=== PATIENT | female | born 1940 | race Hispanic/Latino ===

== ENCOUNTER → 2023-05-03 12:40 | Outpatient (REF) | payer MEDICARE, OTHER, SELFPAY | LOC: WDC 12:40 | PROVIDERS: ATTENDING PHYSICIAN Internal Medicine | DX: R92.2 Inconclusive mammogram (principal) | CPT/HCPCS: 76641 ==

== ENCOUNTER → 2023-08-12 10:27 | Outpatient (REF) | payer MEDICARE, OTHER, SELFPAY ==
[2023-08-12 11:48] LABS: ALT (SGPT) 30 U/L (0-35); AST (SGOT) 33 U/L (14-36); Albumin 4.5 g/dl (3.5-5.0); Alkaline Phosphatase 92 U/L (38-126); Direct Bilirubin 0.3 mg/dl (0.0-0.4); Total Bilirubin 2.1 mg/dl (0.2-1.3); Total Protein 7.5 g/dl (6.3-8.2)
== END ==
LOC: REG 10:27
PROVIDERS: ATTENDING PHYSICIAN Specialist; FAMILY PHYSICIAN Internal Medicine
DX: R79.89 Other specified abnormal findings of blood chemistry (principal)
CPT/HCPCS: 36415; 80076

== ENCOUNTER → 2023-08-26 09:00 | Outpatient (REF) | payer MEDICARE, OTHER, SELFPAY ==
[2023-08-26 12:55] LABS: % Basophils 0.8 % (0-2); % Immature Granulocytes 0.4 % (0-0.5); % Lymphocytes 39.6 % (20.5-51.1); % Neutrophils 49.2 % (42.2-75.2); Absolute Eosinophils 0.2 10^3/uL (0-0.7); Absolute Lymphocytes 1.9 10^3/uL (1.2-3.4); Absolute Monocytes 0.3 10^3/uL (0.1-0.6); Absolute Neutrophils 2.4 10^3/uL (1.4-6.5); Hematocrit 31.4 % (37.0-47.0); Mean Corpuscular Hgb 30.8 pg (27.0-31.0); Mean Platelet Volume 9.6 fL (7.4-10.4); Nucleated Red Blood Cells % 0 %; Platelet Count 384 10^3/uL (130-400); Red Blood Cell Count 3.57 10^6/uL (4.20-5.40); Red Cell Dist. Width 17.7 % (11.5-14.5); White Blood Cell Count 4.8 10^3/uL (4.8-10.8)
[2023-08-26 13:34] LABS: ALT (SGPT) 21 U/L (0-35); AST (SGOT) 31 U/L (14-36); Albumin 4.1 g/dl (3.5-5.0); Alkaline Phosphatase 75 U/L (38-126); Blood Urea Nitrogen 20 mg/dl (7-17); Calcium 9.3 mg/dl (8.4-10.2); Carbon Dioxide 26 mmol/L (22-30); Chloride 107 mmol/L (98-107); Glucose 96 mg/dl (70-99); HDL Cholesterol 63 mg/dl; LDL Cholesterol, Calculated 57 mg/dl; Potassium 4.8 mmol/L (3.5-5.1); Sodium 139 mmol/L (135-145); Total Cholesterol 147 mg/dl (50-199); Triglyceride 136 mg/dl (10-149); Very Low Density Lipoprotein 27 mg/dl (0-30); eGFR > 60.00
[2023-08-26 13:49] LABS: Vitamin D, 25-OH*** 74.7 ng/mL (30-80)
[2023-08-26 14:02] LABS: TSH Reflex To Free T4 3.91 uIU/ml (0.47-4.68)
== END ==
LOC: HWLAB 09:00
PROVIDERS: ATTENDING PHYSICIAN Internal Medicine
DX: Z00.00 Encounter for general adult medical examination without abnormal findings (principal); R94.6 Abnormal results of thyroid function studies; R79.89 Other specified abnormal findings of blood chemistry; K21.9 Gastro-esophageal reflux disease without esophagitis; R00.2 Palpitations; E66.3 Overweight
CPT/HCPCS: 36415; 80053; 80061; 82306; 83036; 84443; 85025

== ENCOUNTER → 2023-09-06 11:04 | Outpatient (REF) | payer MEDICARE, OTHER, SELFPAY | LOC: HWRCS 11:04 | PROVIDERS: ATTENDING PHYSICIAN Internal Medicine | DX: R00.2 Palpitations (principal); R07.9 Chest pain, unspecified; R94.31 Abnormal electrocardiogram [ECG] [EKG] | CPT/HCPCS: 93306 ==

== ENCOUNTER → 2023-09-08 11:05 | Outpatient (REF) | payer MEDICARE, OTHER, SELFPAY | LOC: HWRAD 11:05 | PROVIDERS: ATTENDING PHYSICIAN Internal Medicine | DX: R00.2 Palpitations (principal); R07.9 Chest pain, unspecified; R94.31 Abnormal electrocardiogram [ECG] [EKG] | CPT/HCPCS: 75571 ==

== ENCOUNTER → 2024-01-04 10:14 | Outpatient (REF) | payer MEDICARE, OTHER, SELFPAY | LOC: PAVMRI 10:14 | PROVIDERS: ATTENDING PHYSICIAN Orthopaedic Surgery; FAMILY PHYSICIAN Internal Medicine | DX: M25.562 Pain in left knee (principal) | CPT/HCPCS: 73721 ==

== ENCOUNTER → 2024-02-22 09:06 | Outpatient (REF) | payer MEDICARE, OTHER, SELFPAY ==
[2024-02-22 11:53] LABS: Blood Urea Nitrogen 20 mg/dl (7-17); Calcium 9.2 mg/dl (8.4-10.2); Carbon Dioxide 28 mmol/L (22-30); Chloride 104 mmol/L (98-107); Glucose 97 mg/dl (70-99); Potassium 4.3 mmol/L (3.5-5.1); Sodium 141 mmol/L (135-145); eGFR > 60.00
== END ==
LOC: HWLAB 09:06
PROVIDERS: ATTENDING PHYSICIAN Specialist; FAMILY PHYSICIAN Internal Medicine
DX: R10.32 Left lower quadrant pain (principal)
CPT/HCPCS: 36415; 80048

== ENCOUNTER → 2024-02-29 08:27 | Outpatient (REF) | payer MEDICARE, OTHER, SELFPAY | LOC: HWRAD 08:27 | PROVIDERS: ATTENDING PHYSICIAN Specialist; FAMILY PHYSICIAN Internal Medicine | DX: R10.32 Left lower quadrant pain (principal) | CPT/HCPCS: 74177; Q9967 ==

== ENCOUNTER → 2024-03-23 11:11 | Outpatient (REF) | payer MEDICARE, OTHER, SELFPAY | LOC: HWRAD 11:11 | PROVIDERS: ATTENDING PHYSICIAN Family Medicine | DX: J06.9 Acute upper respiratory infection, unspecified (principal) | CPT/HCPCS: 71046 ==

== ENCOUNTER → 2024-07-03 08:35 | Outpatient (REF) | payer MEDICARE, OTHER, SELFPAY | LOC: HWWDC 08:35 | PROVIDERS: ATTENDING PHYSICIAN Internal Medicine | DX: Z12.31 Encounter for screening mammogram for malignant neoplasm of breast (principal) | CPT/HCPCS: 77063; 77067 ==

== ENCOUNTER → 2024-09-06 09:29 | Outpatient (REF) | payer MEDICARE, OTHER, SELFPAY ==
[2024-09-06 12:04] LABS: % Basophils 0.9 % (0-2); % Immature Granulocytes 0.4 % (0-0.5); % Lymphocytes 31.4 % (20.5-51.1); % Monocytes 7.4 % (1.7-9.3); % Neutrophils 55.9 % (42.2-75.2); Absolute Basophils 0.1 10^3/uL (0-0.2); Absolute Eosinophils 0.2 10^3/uL (0-0.7); Absolute Lymphocytes 1.7 10^3/uL (1.2-3.4); Absolute Monocytes 0.4 10^3/uL (0.1-0.6); Absolute Neutrophils 3.1 10^3/uL (1.4-6.5); Hematocrit 30.6 % (37.0-47.0); Hemoglobin 11.1 g/dL (12.0-16.0); Mean Corp Hgb Conc. 36.3 g/dL (33.0-37.0); Mean Corpuscular Hgb 31.2 pg (27.0-31.0); Mean Platelet Volume 9.2 fL (7.4-10.4); Nucleated Red Blood Cells % 0 %; Platelet Count 363 10^3/uL (130-400); Red Blood Cell Count 3.56 10^6/uL (4.20-5.40); Red Cell Dist. Width 17.2 % (11.5-14.5); White Blood Cell Count 5.5 10^3/uL (4.8-10.8)
[2024-09-06 12:18] LABS: PT 14.7 Sec (11.4-14.6)
[2024-09-06 12:19] LABS: APTT 32.4 Sec (23.4-35.0); Fibrinogen 369 MG/DL (199-459)
[2024-09-06 12:22] LABS: D-Dimer 0.73 ug/mlFEU (0.00-0.50)
[2024-09-06 12:25] LABS: Erythrocyte Sed Rate 5 mm/hour (0-20)
[2024-09-06 12:42] LABS: ALT (SGPT) 23 U/L (0-35); AST (SGOT) 27 U/L (14-36); Albumin 4.2 g/dl (3.5-5.0); Alkaline Phosphatase 79 U/L (38-126); Blood Urea Nitrogen 28 mg/dl (7-17); Calcium 9.2 mg/dl (8.4-10.2); Carbon Dioxide 23 mmol/L (22-30); Chloride 109 mmol/L (98-107); Glucose 96 mg/dl (70-99); Iron 119 ug/dl (37-170); Potassium 4.7 mmol/L (3.5-5.1); Sodium 141 mmol/L (135-145); Total Bilirubin 1.8 mg/dl (0.2-1.3); Total Protein 7.2 g/dl (6.3-8.2); eGFR > 60.00
[2024-09-06 12:51] LABS: Percent Saturation 38 % (20-50); Total Iron Binding Capacity 307 ug/dl (265-497)
[2024-09-07 15:32] LABS: C-Reactive Protein < 5.00 mg/L (0.0-10.00)
[2024-09-07 16:59] LABS: Folate 18.3 ng/ml (2.76-20); Vitamin B12 671 pg/ml (239-931)
[2024-09-08 01:47] LABS: Phosphatidylserine Ab, IgA 0 APS (0-19); Phosphatidylserine Ab, IgG 0 GPS (0-15); Phosphatidylserine Ab, IgM 13 MPS (0-21)
[2024-09-08 15:41] LABS: Number Of Markers 32 markers; Source Blood
[2024-09-08 18:02] LABS: Beta-2-Glycoprotein I Ab. IgG <10 SGU (<=20); Beta-2-Glycoprotein I Ab. IgM 20 SMU (<=20)
[2024-09-09 17:37] LABS: Cardiolipin IgA Antibody <10 APL (<=11); Cardiolipin IgM Antibody <10 MPL (<=12); Cardiolipin Igg Antibody <10 GPL (<=14)
== END ==
LOC: HWLAB 09:29
PROVIDERS: ATTENDING PHYSICIAN Internal Medicine Hematology & Oncology; FAMILY PHYSICIAN Internal Medicine
DX: D47.3 Essential (hemorrhagic) thrombocythemia (principal); D53.9 Nutritional anemia, unspecified; D68.61 Antiphospholipid syndrome; I82.90 Acute embolism and thrombosis of unspecified vein; D68.51 Activated protein C resistance; D68.9 Coagulation defect, unspecified; I82.91 Chronic embolism and thrombosis of unspecified vein; M89.9 Disorder of bone, unspecified
CPT/HCPCS: 80053; 82306; 82607; 82728; 82746; 83540; 83550; 85025; 85379; 85384; 85610; 85613; 85652; 85730; 86140; 86146; 86147; 86148

== ENCOUNTER → 2024-09-27 08:54 | Outpatient (REF) | payer MEDICARE, OTHER, SELFPAY | LOC: WDC 08:54 | PROVIDERS: ATTENDING PHYSICIAN Internal Medicine | DX: Z12.39 Encounter for other screening for malignant neoplasm of breast (principal); Z80.3 Family history of malignant neoplasm of breast | CPT/HCPCS: 76641 ==

== ENCOUNTER → 2024-10-05 08:47 | Outpatient (REF) | payer MEDICARE, OTHER, SELFPAY ==
[2024-10-05 11:13] LABS: Hematocrit 33.0 % (37.0-47.0); Hemoglobin 11.5 g/dL (12.0-16.0); Mean Corp Hgb Conc. 34.8 g/dL (33.0-37.0); Mean Corpuscular Volume 86.6 fL (81.0-99.0); Nucleated Red Blood Cells % 0 %; Platelet Count 363 10^3/uL (130-400); Red Cell Dist. Width 17.5 % (11.5-14.5)
[2024-10-05 11:24] LABS: ALT (SGPT) 25 U/L (0-35); AST (SGOT) 26 U/L (14-36); Albumin 4.2 g/dl (3.5-5.0); Alkaline Phosphatase 79 U/L (38-126); Blood Urea Nitrogen 21 mg/dl (7-17); Calcium 8.7 mg/dl (8.4-10.2); Carbon Dioxide 27 mmol/L (22-30); Chloride 108 mmol/L (98-107); Glucose 98 mg/dl (70-99); HDL Cholesterol 60 mg/dl; LDL Cholesterol, Calculated 67 mg/dl; Potassium 4.8 mmol/L (3.5-5.1); Sodium 139 mmol/L (135-145); Total Protein 7.3 g/dl (6.3-8.2); Very Low Density Lipoprotein 25 mg/dl (0-30); eGFR > 60.00
[2024-10-05 11:39] LABS: Free T3 3.71 pg/ml (2.77-5.27)
[2024-10-05 11:53] LABS: TSH 3.47 uIU/ml (0.47-4.68)
== END ==
LOC: HWLAB 08:47
PROVIDERS: ATTENDING PHYSICIAN Internal Medicine
DX: K21.9 Gastro-esophageal reflux disease without esophagitis (principal); Z29.9 Encounter for prophylactic measures, unspecified; R94.6 Abnormal results of thyroid function studies; R79.89 Other specified abnormal findings of blood chemistry; D58.0 Hereditary spherocytosis
CPT/HCPCS: 36415; 80053; 80061; 84439; 84443; 84481; 85025

== ENCOUNTER → 2024-11-14 13:19 | Outpatient (REF) | payer MEDICARE, OTHER, SELFPAY | LOC: HWRAD 13:19 | PROVIDERS: ATTENDING PHYSICIAN Internal Medicine | DX: M81.0 Age-related osteoporosis without current pathological fracture (principal) | CPT/HCPCS: 77080 ==

== ENCOUNTER → 2024-12-21 16:04 | Outpatient (REF) | payer MEDICARE, OTHER, SELFPAY | LOC: RAD 16:04 | PROVIDERS: FAMILY PHYSICIAN Internal Medicine | DX: R60.0 Localized edema (principal); Z79.01 Long term (current) use of anticoagulants; Z86.718 Personal history of other venous thrombosis and embolism | CPT/HCPCS: 93971 ==

== ENCOUNTER → 2025-01-30 11:57 | Outpatient (REF) | payer MEDICARE, OTHER, SELFPAY ==
[2025-01-30 16:14] LABS: Urine Character Clear (Clear)
[2025-01-30 16:21] LABS: Urine Squamous Cell 0-2 /LPF (Few)
[2025-01-30 16:22] LABS: Urine Red Blood Cell 0-2 /HPF (0-2)
[2025-01-30 16:23] LABS: Urine White Cell 0-2 /HPF (0-5)
[2025-01-30 16:27] LABS: Hematocrit 33.0 % (37.0-47.0); Hemoglobin 11.0 g/dL (12.0-16.0); Mean Corp Hgb Conc. 33.3 g/dL (33.0-37.0); Mean Corpuscular Volume 91.2 fL (81.0-99.0); Nucleated Red Blood Cells % 0 %; Platelet Count 371 10^3/uL (130-400); Red Cell Dist. Width 17.9 % (11.5-14.5)
[2025-01-30 16:41] LABS: Blood Urea Nitrogen 22 mg/dl (7-17); Calcium 8.7 mg/dl (8.4-10.2); Carbon Dioxide 26 mmol/L (22-30); Chloride 104 mmol/L (98-107); Glucose 90 mg/dl (70-99); Magnesium 2.5 mg/dl (1.6-2.3); Potassium 4.5 mmol/L (3.5-5.1); Sodium 136 mmol/L (135-145); eGFR > 60.00
== END ==
LOC: HWLAB 11:57
PROVIDERS: ATTENDING PHYSICIAN Internal Medicine
DX: R35.0 Frequency of micturition (principal); R00.2 Palpitations
CPT/HCPCS: 36415; 80048; 81003; 81015; 83735; 85025

== ENCOUNTER → 2025-02-13 14:35 | Outpatient (REF) | payer MEDICARE, OTHER, SELFPAY | LOC: CLAB 14:35 | PROVIDERS: ATTENDING PHYSICIAN Surgery | DX: R22.9 Localized swelling, mass and lump, unspecified (principal) | CPT/HCPCS: 88304 ==

== ENCOUNTER → 2025-02-18 08:55 | Outpatient (REF) | payer MEDICARE, OTHER, SELFPAY ==
[2025-02-18 10:18] LABS: Hematocrit 35.4 % (37.0-47.0); Hemoglobin 12.2 g/dL (12.0-16.0); Mean Corp Hgb Conc. 34.5 g/dL (33.0-37.0); Mean Corpuscular Volume 87.4 fL (81.0-99.0); Nucleated Red Blood Cells % 0 %; Platelet Count 391 10^3/uL (130-400); Red Cell Dist. Width 17.9 % (11.5-14.5)
[2025-02-18 10:24] LABS: INR 1.19; PT 15.4 Sec (11.4-14.6)
[2025-02-18 10:25] LABS: APTT 35.2 Sec (23.4-35.0); Fibrinogen 464 MG/DL (199-459)
[2025-02-18 10:37] LABS: D-Dimer 0.92 ug/mlFEU (0.00-0.50)
[2025-02-18 10:39] LABS: ALT (SGPT) 34 U/L (0-35); AST (SGOT) 32 U/L (14-36); Albumin 4.8 g/dl (3.5-5.0); Alkaline Phosphatase 105 U/L (38-126); Blood Urea Nitrogen 19 mg/dl (7-17); Calcium 9.2 mg/dl (8.4-10.2); Carbon Dioxide 27 mmol/L (22-30); Chloride 107 mmol/L (98-107); Glucose 99 mg/dl (70-99); Iron 153 ug/dl (37-170); Potassium 4.5 mmol/L (3.5-5.1); Sodium 139 mmol/L (135-145); Total Protein 8.4 g/dl (6.3-8.2); eGFR > 60.00
[2025-02-18 10:48] LABS: Total Iron Binding Capacity 341 ug/dl (265-497)
[2025-02-18 11:45] LABS: C-Reactive Protein 8.60 mg/L (0.0-10.00)
[2025-02-18 12:03] LABS: Vitamin D, 25-OH*** 67.8 ng/mL (30-80)
[2025-02-18 12:21] LABS: Ferritin 474.0 ng/ml (11.1-264.0)
[2025-02-18 12:53] LABS: Folate 12.4 ng/ml (2.76-20); Vitamin B12 635 pg/ml (239-931)
[2025-02-19 15:21] LABS: Anticoagulant Med Neutralizati DOAC-Stop (Not Performed); Neutralized dRVTT Screen Ratio 0.94 (<=1.20); Prothrombin Time 15.3 s (12.0-15.5); dRVTT 1.1 Mix Ratio Not Performed (<=1.20); dRVTT Confirmation Ratio Not Performed (<=1.20); dRVTT Screen Ratio 1.31 (<=1.20)
[2025-02-20 00:48] LABS: Beta-2-Glycoprotein I Ab. IgG <10 SGU (<=20); Beta-2-Glycoprotein I Ab. IgM 23 SMU (<=20)
[2025-02-21 02:48] LABS: Phosphatidylserine Ab, IgA 0 APS (0-19); Phosphatidylserine Ab, IgG 0 GPS (0-15); Phosphatidylserine Ab, IgM 22 MPS (0-21)
== END ==
LOC: REG 08:55
PROVIDERS: ATTENDING PHYSICIAN Internal Medicine Hematology & Oncology; FAMILY PHYSICIAN Internal Medicine
DX: D47.3 Essential (hemorrhagic) thrombocythemia (principal); D53.9 Nutritional anemia, unspecified; D68.61 Antiphospholipid syndrome; I82.90 Acute embolism and thrombosis of unspecified vein; D68.51 Activated protein C resistance; D68.9 Coagulation defect, unspecified; I82.91 Chronic embolism and thrombosis of unspecified vein; Z79.899 Other long term (current) drug therapy
CPT/HCPCS: 36415; 80053; 82306; 82607; 82728; 82746; 83540; 83550; 85025; 85379; 85384; 85520; 85610; 85613; 85652; 85730; 86140; 86146; 86147; 86148